=== PATIENT | female | born 1980 | race Caucasian/White ===

== ENCOUNTER 2018-07-24 10:57 | Observation (INO) | payer BC ==
--- NOTE | 2018-07-24 11:29 | Emergency Department Record ---
History of Present Illness - General Chief Complaint: Abdominal Pain Stated Complaint: ABD PAIN Time Seen by Provider: 07/24/18 11:29 Source: Patient, RN notes reviewed Mode of Arrival: Ambulatory - History of Present Illness Initial Comments: abdominal pain and vomited time two since it started at 5 pm yesterday. 3 episodes of diarrhea. PSH one ovary removed and part of the other ovary removed. Primary Dr. Dr Woods and gaming worker Dr. Weinberg PMH of endometroisis, CVA at 6 years of age and hypertension now and hypothyroidism anxiety disorder. Patient has had the same sexual partner for 12 years and denies STD and no vaginal discharge. Onset/Timin -: Days(s) Location: Diffuse Severity: Moderate Severity scale (1-10): 4 Quality: Aching, Burning, Cramping Consistency: Intermittent Improves With: Nothing Worsens With: Nothing - Related Data Patient : No Home Medications Medication Instructions Recorded Confirmed Last Taken Alprazolam 0.5 mg PO DAILY 07/24/18 07/24/18 Unknown Ascorbic Acid [Vitamin C] 1,000 mg PO DAILY 07/24/18 07/24/18 07/24/18 Aspirin [Aspirin EC] 325 mg PO DAILY 07/24/18 07/24/18 07/24/18 Atorvastatin Calcium [Lipitor] 10 mg PO DAILY 07/24/18 07/24/18 07/24/18 Carvedilol 25 mg PO DAILY 07/24/18 07/24/18 07/24/18 Cholecalciferol (Vitamin D3) 5,000 unit PO DAILY 07/24/18 07/24/18 07/24/18 [Vitamin D3] Folic Acid 0.4 mg PO DAILY 07/24/18 07/24/18 07/24/18 Hydrochlorothiazide [Hctz] 25 mg PO DAILY 07/24/18 07/24/18 07/24/18 Levothyroxine Sodium 850 mcg PO DAILY 07/24/18 07/24/18 07/24/18 Montelukast Sodium 10 mg PO DAILY 07/24/18 07/24/18 07/24/18 Multivitamin [Daily Multiple 1 each PO DAILY 07/24/18 07/24/18 07/24/18 Vitamin] Venlafaxine HCl [Effexor Xr] 150 mg PO DAILY 07/24/18 07/24/18 07/24/18 Allergies Allergy/AdvReac Type Severity Reaction Status Date / Time bismuth subsalicylate Allergy RASH Verified 07/24/18 11:08 [From Pepto-Bismol] Travel Screening - Travel/Exposure Within Last 30 Days Have you traveled within the last 30 days?: No - Travel/Exposure Within Last Year Have you traveled outside the [place] in the last year?: No - Additonal Travel Details Have you been exposed to anyone with a communicable illness?: No - Travel Symptoms Symptom Screening: None Review of Systems Reviewed: No additional complaints except as noted below Constitutional: Reports: As per HPI. Denies: Chills, Fever, Malaise, Night sweats, Weakness, Weight change Eyes: Reports: As per HPI. Denies: Eye discharge, Eye pain, Photophobia, Vision change ENT: Reports: As per HPI. Denies: Congestion, Dental pain, Ear pain, Epistaxis , Hearing loss, Throat pain Respiratory: Reports: As per HPI. Denies: Cough, Dyspnea, Hemoptysis, Stridor, Wheezes Cardiovascular: Reports: As per HPI. Denies: Arrhythmia, Chest pain, Dyspnea on exertion, Edema, Murmurs, Orthopnea, Palpitations, Paroxysmal nocturnal dyspnea, Rheumatic Fever, Syncope Endocrine: Reports: As per HPI. Denies: Fatigue, Heat or cold intolerance, Polydipsia, Polyuria Gastrointestinal: Reports: As per HPI, Abdominal pain. Denies: Constipation, Diarrhea, Hematemesis, Hematochezia, Melena, Nausea, Vomiting Genitourinary: Reports: As per HPI. Denies: Abnormal menses, Discharge, Dyspareunia, Dysuria, Frequency, Hematuria, Incontinence, Retention, Urgency Musculoskeletal: Reports: As per HPI. Denies: Arthralgia, Back pain, Gout, Joint swelling, Myalgia, Neck pain Skin: Reports: As per HPI. Denies: Bruising, Change in color, Change in hair/ nails, Lesions, Pruritus, Rash Neurological: Reports: As per HPI. Denies: Abnormal gait, Confusion, Headache, Numbness, Paresthesias, Seizure, Tingling, Tremors, Vertigo, Weakness Psychiatric: Reports: As per HPI. Denies: Anxiety, Auditory hallucinations, Depression, Homicidal thoughts, Suicidal thoughts, Visual hallucinations Hematological/Lymphatic: Reports: As per HPI. Denies: Anemia, Blood Clots, Easy bleeding, Easy bruising, Swollen glands Past Medical History - SOCIAL HISTORY Smoking Status: Never smoker Alcohol Use: None Drug Use: None - RESPIRATORY Hx Respiratory Disorders: No - CARDIOVASCULAR Hx Cardio Disorders: Yes Hx Hypertension: Yes - NEURO Hx Neuro Disorders: Yes Hx CVA: Yes - GI Hx GI Disorders: No - Hx Genitourinary Disorders: Yes - ENDOCRINE Hx Endocrine Disorders: Yes Hx Thyroid Disease: Yes - MUSCULOSKELETAL Hx Musculoskeletal Disorders: No - PSYCH Hx Psych Problems: Yes Hx Anxiety: Yes Hx Depression: Yes - HEMATOLOGY/ONCOLOGY Hx Hematology/Oncology Disorders: No Family Medical History Any Significant Family History?: Yes Hx Cancer: Grandparents *Cancer Comment: skin Hx Depression: Mother, Brother/Sister Hx HTN: Father, Mother, Grandparents Hx Stroke: Grandparents Physical Exam - General General Appearance: Alert, Oriented x3, Cooperative, No acute distress - Head Head exam: Normal inspection - Eye Eye exam: Normal appearance, PERRL Pupils: Normal accommodation - ENT ENT exam: Normal exam, Mucous membranes moist, Normal external ear exam, Normal orophraynx, TM's normal bilaterally Ear exam: Normal external inspection. negative: External canal tenderness Nasal Exam: Normal inspection. negative: Discharge, Sinus tenderness Mouth exam: Normal external inspection, Tongue normal Teeth exam: Normal inspection. negative: Dental caries Throat exam: Normal inspection. negative: Tonsillar erythema, Tonsillar exudate - Neck Neck exam: Normal inspection, Full ROM. negative: Tenderness - Respiratory Respiratory exam: Normal lung sounds bilaterally. negative: Respiratory distress - Cardiovascular Cardiovascular Exam: Regular rate, Normal rhythm, Normal heart sounds - GI/Abdominal GI/Abdominal exam: Soft, Tenderness (lower quad pain bilaterl and right upper quad and the pain comes in waves). negative: Distended, Guarding, Mass, Rebound , Rigid - Rectal Rectal exam: Deferred - exam: Deferred - Extremities Extremities exam: Normal inspection, Full ROM, Normal capillary refill. negative: Tenderness - Back Back exam: Reports: Normal inspection, Full ROM. Denies: Muscle spasm, Rash noted, Tenderness - Neurological Neurological exam: Alert, Normal gait, Oriented X3, Reflexes normal - Psychiatric Psychiatric exam: Normal affect, Normal mood - Skin Skin exam: Dry, Intact, Normal color, Warm Course Vital Signs 07/24/18 11:17 Temperature 98.3 F Pulse Rate 107 H Respiratory 20 Rate Blood Pressure 142/104 Pulse Ox 99 - Reevaluation(s) Reevaluation #1: patient requested to go to [facility] if possible and will call her family Dr. Woods. 07/24/18 13:33 Reevaluation #2: Discussed case with and she recommended calling Dr Smith. 07/24/18 13:41 Reevaluation #3: patient said her abominal pain feels better but painful on palpation in the Right lower quad 07/24/18 13:44 Reevaluation #4: Discussed case with Dr Smith and he recommended conservative management and he could see her tomorrow afternoon 07/24/18 13:52 Reevaluation #5: Discussed case with Dr Ramirez and she agreed to taking the patient. The patient was updated and she was in agreement with staying at [facility]. 07/24/18 13:57 07/24/18 14:01 Medical Decision Making - Data Complexity MDM Data: Labs Ordered and/or Reviewed, X-Ray Ordered and/or Reviewed (air fluid levels suspicious for a small bowel obstruction, transition distal illeum) - Lab Data Result diagrams: 07/24/18 11:28 07/24/18 11:28 Disposition Clinical Impression: Multiple air fluid levels of small intestine determined by X-ray, SBO (small bowel obstruction) Abdominal pain Qualifiers: Abdominal location: lower abdomen, unspecified Qualified Code(s): R10.30 - Lower abdominal pain, unspecified Decision to Admit: Admit from ER Forms: Patient Portal Access Time of Disposition: 14:02 Quality - Quality Measures Quality Measures: N/A - Blood Pressure Screening Does Patient Have Any of the Following: No, Active Dx of HTN Blood Pressure Classification: Hypertensive Reading Systolic Measurement: 142 Diastolic Measurement: 104 Screening for High Blood Pressure: Patient Exclusion, Hx of HTN [[id number]]
[2018-07-24] MEDS ORDERED: KETOROLAC 30 MG/ML VIAL IVP ONE (11:59)
[2018-07-24] MEDS ORDERED: ONDANSETRON HCL IV 4 MG/2 ML VIAL IV ONE (11:59)
[2018-07-24] MEDS ORDERED: 0.9 % SODIUM CHLORIDE 1,000 ML BAG IV ONE (11:59)
[2018-07-24 12:09] LABS: HEMATOCRIT 44.6 % (35.0-47.0); MEAN CELL VOLUME 89.9 fl (81-97); MEAN CORPUSCULAR HEMOGLOBIN 32.3 pg (27-33); MEAN CORPUSCULAR HGB CONC 35.9 g/dl (32-36); MEAN PLATELET VOLUME 10.8 fl (7.4-10.4); PLATELET COUNT 302 K/uL (130-400); RED BLOOD COUNT 4.96 M/uL (3.80-5.40); RED CELL DISTRIBUTION WIDTH 12.7 % (11.5-14.5); WHITE BLOOD COUNT W/O DIFF 11.5 K/uL (4.2-12.2)
[2018-07-24 12:10] LABS: URINE APPEARANCE CLEAR; URINE BILIRUBIN NEGATIVE (NEGATIVE); URINE BLOOD NEGATIVE (NEGATIVE); URINE COLOR YELLOW; URINE GLUCOSE (UA) NEGATIVE (NEGATIVE); URINE KETONE NEGATIVE (NEGATIVE); URINE LEUKOCYTE ESTERASE NEGATIVE (NEGATIVE); URINE NITRITE NEGATIVE (NEGATIVE); URINE PROTEIN TRACE (NEGATIVE)
[2018-07-24 12:14] LABS: HCG,QUALITATIVE URINE NEGATIVE (NEGATIVE)
[2018-07-24 12:17] LABS: BLOOD UREA NITROGEN 10 mg/dL (6-20)
[2018-07-24 12:18] LABS: CREATININE 0.6 mg/dL (0.5-0.9); EST GLOMERULAR FILTRATION RATE > 60 mL/min
[2018-07-24 12:20] LABS: GLUCOSE,RANDOM 110 mg/dL (74-109)
[2018-07-24 12:23] LABS: ALBUMIN 4.9 g/dL (4.0-5.0); ALKALINE PHOSPHATASE 76 U/L (35-104); ALT/SGPT 17 U/L (<33); AST/SGOT 24 U/L (10.0-35.0); LIPASE 22 U/L (13-60)
[2018-07-24 12:24] LABS: BILIRUBIN,DIRECT < 0.2 mg/dL (0-0.3)
[2018-07-24] MEDS ORDERED: POTASSIUM CHLORIDE 20 MEQ TABLET PO ONE (13:19)
[2018-07-24] MEDS ORDERED: KETOROLAC 30 MG/ML VIAL IVP PRN (14:09)
[2018-07-24] MEDS: HYDROMORPHONE HCL 2 MG/ML VIAL IVP PRN ×2 (15:02→21:14)
[2018-07-24] MEDS ORDERED: ACETAMINOPHEN 325 MG TAB PO PRN (16:01)
[2018-07-24] MEDS ORDERED: ALPRAZOLAM 0.25 MG TABLET PO PRN (16:15)
[2018-07-24] MEDS: VENLAFAXINE ER 75 MG CAPSULE PO SCH (16:48)
[2018-07-24] MEDS: MONTELUKAST SODIUM 10MG TABLET PO SCH (16:48)
[2018-07-24] MEDS: ACETAMINOPHEN 1,000 MG/100 ML BTL IVPB SCH ×2 (17:38→23:38)
[2018-07-24] MEDS: PANTOPRAZOLE SODIUM IV 40 MG VIAL IVP SCH (17:38)
[2018-07-24] MEDS: 0.9 % SODIUM CHLORIDE 1000ML 1,000 ML IV PRN ×2 (18:23→23:38)
[2018-07-24] MEDS: ONDANSETRON HCL IV 4 MG/2 ML VIAL IVP PRN (21:14)
--- NOTE | 2018-07-24 21:14 | Physician Progress Note ---
Subjective - Date Date of Physician Progress Note: 07/24/18 - Subjective Subjective Comment: Pt presented to the ED with abdominal pain. Pt states that the abdominal pain started at 5 PM yesterday. She initially thought it was pain 2/2 to her endometriosis but the pain progressively got worse and she started to vomit and have diarrhea overnight. She states that she was able to get a couple hours of rest but then started vomiting again this morning and came to the ED. She states that the pain feels like burning and sharp stabbing in the mid abdomen. She states that she didn't eat anything unusual and didn't consume any amrita lettuce. 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 She denies thinking she has an STD. She has been monogamous with the same partner for roughly 12 years and she believes he is monogamous as well. She uses depo for and is amenorrheic. She denies . Vitals:T 98.3, P 107, RR 20, BP 142/104, 99% on RA Labs: AG increase mildly at 17, Low K+ otherwise nml Imaging: Suspicious for SBO. Pt was admitted for SBO and surgical c/s for possible intervention. Dr Smith to eval pt in AM. With antiemetics, toradol, and dilaudid given in the ED. Pt states that she is feeling better after the initial treatment. Last BM this AM. Objective - Vital Signs Vital Signs: Vital Signs - Last 24 Hrs Temp Pulse Pulse Resp BP BP Pulse Ox 07/24/18 18:00 99.2 F 94 H 16 140/79 98 07/24/18 14:40 98.1 F 125 H 16 151/100 96 07/24/18 14:02 89 18 141/95 98 07/24/18 11:17 98.3 F 107 H 20 142/104 99 - General General Appearance: Alert, Oriented x3, Cooperative, No acute distress - Head Head exam: Normal inspection - Eye Eye exam: Normal appearance, PERRL Pupils: Normal accommodation - ENT ENT exam: Normal exam, Mucous membranes moist, Normal external ear exam, Normal orophraynx Ear exam: Normal external inspection. negative: External canal tenderness Nasal Exam: Normal inspection. negative: Discharge, Sinus tenderness Mouth exam: Normal external inspection, Tongue normal Teeth exam: Normal inspection. negative: Dental caries Throat exam: Normal inspection. negative: Tonsillar erythema, Tonsillar exudate - Neck Neck exam: Normal inspection, Full ROM. negative: Tenderness - Respiratory Respiratory exam: Normal lung sounds bilaterally. negative: Respiratory distress - Cardiovascular Cardiovascular Exam: Regular rate, Normal rhythm, Normal heart sounds - GI/Abdominal GI/Abdominal exam: Soft, Tenderness (lower quad pain bilaterl and right upper quad and the pain comes in waves). negative: Distended, Guarding, Mass, Rebound , Rigid - Rectal Rectal exam: Deferred - exam: Deferred - Extremities Extremities exam: Normal inspection, Full ROM, Normal capillary refill. negative: Tenderness - Back Back exam: Reports: Normal inspection, Full ROM. Denies: Muscle spasm, Rash noted, Tenderness - Neurological Neurological exam: Alert, Normal gait, Oriented X3, Reflexes normal - Psychiatric Psychiatric exam: Normal affect, Normal mood - Skin Skin exam: Dry, Intact, Normal color, Warm Assessment and Plan - Assessment and Plan (1) SBO (small bowel obstruction) Current Visit: Yes Status: Acute Base Code: K56.609 - UNSP INTESTNL OBST, UNSP TO PARTIAL VERSUS COMPLETE OBST Priority: High (2) Full code status Current Visit: Yes Status: Acute Base Code: Z78.9 - OTHER SPECIFIED HEALTH STATUS Priority: High - Disposition Disposition: pending surgery c/s, pain control, and able to tolerate soft diet. Results - Labs Result Diagrams: 07/24/18 11:28 07/24/18 11:28 Labs Last 24 Hours: Laboratory Results - last 24 hr 07/24/18 07/24/18 07/24/18 11:28 11:28 11:28 WBC 11.5 RBC 4.96 Hgb 16.0 Hct 44.6 MCV 89.9 MCH 32.3 MCHC 35.9 RDW 12.7 Plt Count 302 MPV 10.8 H Neutrophils % 85.0 H Eosinophils % Not Reportable Basophils % Not Reportable Lymphocytes 11.0 L Monocytes 4.0 Sodium 139 Potassium 3.1 L Chloride 99 Carbon Dioxide 23.0 Anion Gap 17.0 H BUN 10 Creatinine 0.6 Estimated GFR > 60 Random Glucose 110 H Calcium 10.0 Total Bilirubin 0.50 Direct Bilirubin < 0.2 AST 24 ALT 17 Alkaline Phosphatase 76 Total Protein 8.0 Albumin 4.9 Lipase 22 Urine Color Yellow Urine Appearance Clear Urine pH 6.5 Ur Specific [place] 1.020 Urine Protein Trace H Urine Glucose (UA) Negative Urine Ketones Negative Urine Blood Negative Urine Nitrite Negative Urine Bilirubin Negative Urine Urobilinogen 1.0 Ur Leukocyte Esterase Negative Urine HCG, Qual Negative DVT/PE Assessment - Risk for VTE Risk for VTE: No Risk Level: Very Low Risk Assessment Date: 07/24/18 Risk Assessment Time: 21:24 VTE Orders Placed or Will Be Placed: No VTE Reason for No Prophylaxis: Not Indicated - VTE Confirmation VTE Confirmed w/Diagnostic Imaging Test: No - Active Medicaitons Current Medications: Current Medications Alprazolam (Xanax) 0.5 mg PO DAILY PRN PRN Reason: ANXIETY Carvedilol (Coreg) 25 mg PO BID [facility] Enoxaparin Sodium (Lovenox) 40 mg SC DAILY [facility] Hydromorphone HCl (Dilaudid) 1 mg IVP Q4H PRN PRN Reason: ABDOMINAL PAIN Last Admin: 07/24/18 15:02 Dose: 1 mg Sodium Chloride () 1,000 mls @ 125 mls/hr IV .Q8H PRN PRN Reason: LARGE VOLUME IV Last Admin: 07/24/18 18:23 Dose: 125 mls/hr Acetaminophen (Ofirmev) 1,000 mg in 100 mls @ 400 mls/hr IVPB Q6HR [facility] Last Infusion: 07/24/18 18:23 Dose: Infused Ketorolac Tromethamine (Toradol) 15 mg IVP Q8H PRN PRN Reason: ABDOMINAL PAIN Levothyroxine Sodium (Synthroid) 50 mcg PO DAILYTHY [facility] Montelukast Sodium (Singulair) 10 mg PO DAILY [facility] Last Admin: 07/24/18 16:48 Dose: 10 mg Ondansetron HCl (Zofran) 4 mg IVP Q4H PRN PRN Reason: NAUSEA Pantoprazole Sodium (Protonix Iv) 40 mg IVP Q24H [facility] Last Admin: 07/24/18 17:38 Dose: 40 mg Venlafaxine HCl (Effexor Xr) 150 mg PO DAILY [facility] Last Admin: 07/24/18 16:48 Dose: 150 mg AMI Plan - Labs Result Diagrams: 07/24/18 11:28 07/24/18 11:28
[2018-07-24] MEDS: CARVEDILOL 12.5 MG TABLET PO SCH (21:16)
--- NOTE | 2018-07-24 21:29 | History & Physical ---
History of Present Illness - Date of Service Date of Service for History & Physical: 07/24/18 - History of Present Illness Admitting Diagnosis: SBO possible illeus. abdominal pain History of Present Illness: Pt presented to the ED with abdominal pain. Pt states that the abdominal pain started at 5 PM yesterday. She initially thought it was pain 2/2 to her endometriosis but the pain progressively got worse and she started to vomit and have diarrhea overnight. She states that she was able to get a couple hours of rest but then started vomiting again this morning and came to the ED. She states that the pain feels like burning and sharp stabbing in the mid abdomen. She states that she didn't eat anything unusual and didn't consume any amrita lettuce. 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 She denies thinking she has an STD. She has been monogamous with the same partner for roughly 12 years and she believes he is monogamous as well. She uses depo for and is amenorrheic. She denies . Vitals:T 98.3, P 107, RR 20, BP 142/104, 99% on RA Labs: AG increase mildly at 17, Low K+ otherwise nml Imaging: Suspicious for SBO. Pt was admitted for SBO and surgical c/s for possible intervention. Dr Smith to eval pt in AM. With antiemetics, toradol, and dilaudid given in the ED. Pt states that she is feeling better after the initial treatment. Last BM this AM. Travel Screening - Travel/Exposure Within Last 30 Days Have you traveled within the last 30 days?: No - Travel/Exposure Within Last Year Have you traveled outside the [place] in the last year?: No - Additonal Travel Details Have you been exposed to anyone with a communicable illness?: No - Travel Symptoms Symptom Screening: None Review of Systems Constitutional: Reports: As per HPI. Denies: Chills, Fever, Malaise, Night sweats, Weakness, Weight change Eyes: Reports: As per HPI. Denies: Eye discharge, Eye pain, Photophobia, Vision change ENT: Reports: As per HPI. Denies: Congestion, Dental pain, Ear pain, Epistaxis , Hearing loss, Throat pain Respiratory: Reports: As per HPI. Denies: Cough, Dyspnea, Hemoptysis, Stridor, Wheezes Cardiovascular: Reports: As per HPI. Denies: Arrhythmia, Chest pain, Dyspnea on exertion, Edema, Murmurs, Orthopnea, Palpitations, Paroxysmal nocturnal dyspnea, Rheumatic Fever, Syncope Endocrine: Reports: As per HPI. Denies: Fatigue, Heat or cold intolerance, Polydipsia, Polyuria Gastrointestinal: Reports: As per HPI, Abdominal pain, Diarrhea, Nausea, Vomiting. Denies: Constipation, Hematemesis, Hematochezia, Melena Genitourinary: Reports: As per HPI. Denies: Abnormal menses, Discharge, Dyspareunia, Dysuria, Frequency, Hematuria, Incontinence, Retention, Urgency Musculoskeletal: Reports: As per HPI. Denies: Arthralgia, Back pain, Gout, Joint swelling, Myalgia, Neck pain Skin: Reports: As per HPI. Denies: Bruising, Change in color, Change in hair/ nails, Lesions, Pruritus, Rash Neurological: Reports: As per HPI. Denies: Abnormal gait, Confusion, Headache, Numbness, Paresthesias, Seizure, Tingling, Tremors, Vertigo, Weakness Psychiatric: Reports: As per HPI Hematological/Lymphatic: Reports: As per HPI Past Medical History - SOCIAL HISTORY Smoking Status: Never smoker Alcohol Use: None Drug Use: None - RESPIRATORY Hx Respiratory Disorders: No - CARDIOVASCULAR Hx Cardio Disorders: Yes Hx Hypertension: Yes - NEURO Hx Neuro Disorders: Yes Hx CVA: Yes (5yo, loss of fine motor left arm) - GI Hx GI Disorders: No - Hx Genitourinary Disorders: Yes - ENDOCRINE Hx Endocrine Disorders: Yes Hx Thyroid Disease: Yes - MUSCULOSKELETAL Hx Musculoskeletal Disorders: No - PSYCH Hx Psych Problems: Yes Hx Anxiety: Yes Hx Depression: Yes - HEMATOLOGY/ONCOLOGY Hx Hematology/Oncology Disorders: No Family Medical History Any Significant Family History?: Yes Hx Cancer: Grandparents *Cancer Comment: skin Hx Depression: Mother, Brother/Sister Hx HTN: Father, Mother, Grandparents Hx Stroke: Grandparents H&P Meds/Allergies - Allergies Allergies: Allergies Allergy/AdvReac Type Severity Reaction Status Date / Time bismuth subsalicylate Allergy RASH Verified 07/24/18 11:08 [From Pepto-Bismol] - Home Medications Home Medications Medication Instructions Recorded Confirmed Last Taken Alprazolam 0.5 mg PO DAILY 07/24/18 07/24/18 Unknown Ascorbic Acid [Vitamin C] 1,000 mg PO DAILY 07/24/18 07/24/18 07/24/18 Aspirin [Aspirin EC] 325 mg PO DAILY 07/24/18 07/24/18 07/24/18 Atorvastatin Calcium [Lipitor] 10 mg PO DAILY 07/24/18 07/24/18 07/24/18 Carvedilol 25 mg PO BID 07/24/18 07/24/18 07/24/18 Cholecalciferol (Vitamin D3) 5,000 unit PO DAILY 07/24/18 07/24/18 07/24/18 [Vitamin D3] Folic Acid 0.4 mg PO DAILY 07/24/18 07/24/18 07/24/18 Hydrochlorothiazide [Hctz] 25 mg PO DAILY 07/24/18 07/24/18 07/24/18 Levothyroxine Sodium 50 mcg PO DAILY 07/24/18 07/24/18 07/24/18 Montelukast Sodium 10 mg PO DAILY 07/24/18 07/24/18 07/24/18 Multivitamin [Daily Multiple 1 each PO DAILY 07/24/18 07/24/18 07/24/18 Vitamin] Venlafaxine HCl [Effexor Xr] 150 mg PO DAILY 07/24/18 07/24/18 07/24/18 - Active Medications Active Medications: Current Medications Alprazolam (Xanax) 0.5 mg PO DAILY PRN PRN Reason: ANXIETY Carvedilol (Coreg) 25 mg PO BID [facility] Last Admin: 07/24/18 21:16 Dose: 25 mg Hydromorphone HCl (Dilaudid) 1 mg IVP Q4H PRN PRN Reason: ABDOMINAL PAIN Last Admin: 07/24/18 21:14 Dose: 1 mg Sodium Chloride () 1,000 mls @ 125 mls/hr IV .Q8H PRN PRN Reason: LARGE VOLUME IV Last Admin: 07/24/18 18:23 Dose: 125 mls/hr Acetaminophen (Ofirmev) 1,000 mg in 100 mls @ 400 mls/hr IVPB Q6HR [facility] Last Infusion: 07/24/18 18:23 Dose: Infused Ketorolac Tromethamine (Toradol) 15 mg IVP Q8H PRN PRN Reason: ABDOMINAL PAIN [facility]othyroxine [facility] ([facility] Montelukast Sodium (Singulair) 10 mg PO DAILY [facility] Last Admin: 07/24/18 16:48 Dose: 10 mg Ondansetron HCl (Zofran) 4 mg IVP Q4H PRN PRN Reason: NAUSEA Last Admin: 07/24/18 21:14 Dose: 4 mg Pantoprazole Sodium (Protonix Iv) 40 mg IVP Q24H [facility] Last Admin: 07/24/18 17:38 Dose: 40 mg Venlafaxine HCl (Effexor Xr) 150 mg PO DAILY [facility] Last Admin: 07/24/18 16:48 Dose: 150 mg Physical Exam - Vital Signs Vital Signs: Vital Signs - Last 24 Hrs Temp Pulse Pulse Resp BP BP Pulse Ox 07/24/18 21:17 98.7 F 93 H 18 140/72 98 07/24/18 18:00 99.2 F 94 H 16 140/79 98 07/24/18 14:40 98.1 F 125 H 16 151/100 96 07/24/18 14:02 89 18 141/95 98 07/24/18 11:17 98.3 F 107 H 20 142/104 99 - General General Appearance: Alert, Oriented x3, Cooperative, No acute distress - Head Head exam: Normal inspection - Eye Eye exam: Normal appearance, PERRL Pupils: Normal accommodation - ENT ENT exam: Normal exam, Mucous membranes moist, Normal external ear exam, Normal orophraynx Ear exam: Normal external inspection. negative: External canal tenderness Nasal Exam: Normal inspection. negative: Discharge, Sinus tenderness Mouth exam: Normal external inspection, Tongue normal Teeth exam: Normal inspection. negative: Dental caries Throat exam: Normal inspection. negative: Tonsillar erythema, Tonsillar exudate - Neck Neck exam: Normal inspection, Full ROM. negative: Tenderness - Respiratory Respiratory exam: Normal lung sounds bilaterally. negative: Respiratory distress - Cardiovascular Cardiovascular Exam: Regular rate, Normal rhythm, Normal heart sounds - GI/Abdominal GI/Abdominal exam: Soft, Hyperactive bowel sounds, Tenderness (lower quad pain bilaterl and right upper quad and the pain comes in waves). negative: Distended , Guarding, Mass, Rebound, Rigid - Rectal Rectal exam: Deferred - exam: Deferred - Extremities Extremities exam: Normal inspection, Full ROM, Normal capillary refill. negative: Tenderness - Back Back exam: Reports: Normal inspection, Full ROM. Denies: Muscle spasm, Rash noted, Tenderness - Neurological Neurological exam: Alert, Oriented X3 - Psychiatric Psychiatric exam: Normal affect, Normal mood - Skin Skin exam: Dry, Intact, Normal color, Warm Results - Labs Result Diagrams: 07/24/18 11:28 07/24/18 11:28 Labs Last 24 Hours: Laboratory Results - last 24 hr 07/24/18 07/24/18 07/24/18 11:28 11:28 11:28 WBC 11.5 RBC 4.96 Hgb 16.0 Hct 44.6 MCV 89.9 MCH 32.3 MCHC 35.9 RDW 12.7 Plt Count 302 MPV 10.8 H Neutrophils % 85.0 H Eosinophils % Not Reportable Basophils % Not Reportable Lymphocytes 11.0 L Monocytes 4.0 Sodium 139 Potassium 3.1 L Chloride 99 Carbon Dioxide 23.0 Anion Gap 17.0 H BUN 10 Creatinine 0.6 Estimated GFR > 60 Random Glucose 110 H Calcium 10.0 Total Bilirubin 0.50 Direct Bilirubin < 0.2 AST 24 ALT 17 Alkaline Phosphatase 76 Total Protein 8.0 Albumin 4.9 Lipase 22 Urine Color Yellow Urine Appearance Clear Urine pH 6.5 Ur Specific [place] 1.020 Urine Protein Trace H Urine Glucose (UA) Negative Urine Ketones Negative Urine Blood Negative Urine Nitrite Negative Urine Bilirubin Negative Urine Urobilinogen 1.0 Ur Leukocyte Esterase Negative Urine HCG, Qual Negative VTE H&P Assessment - Risk for VTE Risk for VTE: Yes Risk Level: Very Low (scd) Risk Assessment Date: 07/24/18 Risk Assessment Time: 21:24 VTE Orders Placed or Will Be Placed: Yes Plan - Detailed Diagnosis and Plan (1) SBO (small bowel obstruction) Current Visit: Yes Status: Acute Base Code: K56.609 - UNSP INTESTNL OBST, UNSP TO PARTIAL VERSUS COMPLETE OBST Priority: High Comment: - NPO - [place] to eval in AM - Dilaudid, ofiramev, toradol on board for pain. - Explained to pt to try not to use dilaudid as it will cause constipation and worsen symptoms/ obstruction. - IVF bolus x 3 then maintenance fluid 125/hr NS. - Protonix for burning pain 40mg daily. - will monitor closely. (2) Full code status Current Visit: Yes Status: Acute Base Code: Z78.9 - OTHER SPECIFIED HEALTH STATUS Priority: High - Disposition pending surgery c/s, pain control, and able to tolerate soft diet.
[2018-07-25] MEDS: LEVOTHYROXINE SODIUM 50 MCG TABLET PO SCH (06:06)
[2018-07-25] MEDS: HYDROMORPHONE HCL 2 MG/ML VIAL IVP PRN ×5 (06:10→23:17)
[2018-07-25] MEDS: ACETAMINOPHEN 1,000 MG/100 ML BTL IVPB SCH ×4 (06:16→23:00)
[2018-07-25 06:51] LABS: BASO % 0.2 % (0-6); EOS % 2.8 % (0-6); GRAN % 49.9 % (47-80); HEMATOCRIT 37.6 % (35.0-47.0); HEMOGLOBIN 12.8 gm/dl (11.6-16.0); LYMPH % 37.6 % (16-45); MEAN CELL VOLUME 93.3 fl (81-97); MEAN CORPUSCULAR HEMOGLOBIN 31.8 pg (27-33); MEAN PLATELET VOLUME 10.1 fl (7.4-10.4); MONO % 9.5 % (0-9); PLATELET COUNT 218 K/uL (130-400); RED BLOOD COUNT 4.03 M/uL (3.80-5.40); WHITE BLOOD COUNT W/O DIFF 6.5 K/uL (4.2-12.2)
[2018-07-25 07:11] LABS: BLOOD UREA NITROGEN 9 mg/dL (6-20); CREATININE 0.6 mg/dL (0.5-0.9); EST GLOMERULAR FILTRATION RATE > 60 mL/min; GLUCOSE,RANDOM 93 mg/dL (74-109)
--- NOTE | 2018-07-25 07:28 | CT SCAN REPORT ---
EXAM: NONCONTRAST CT OF THE ABDOMEN AND PELVIS HISTORY: ABDOMINAL PAIN. HISTORY OF ENDOMETRIOSIS. TECHNIQUE: Noncontrast CT of the abdomen and pelvis was obtained. Comparison: None. FINDINGS: No significant abnormalities are detected in the visualized lung bases. Unremarkable noncontrast appearance of the liver, gallbladder, adrenal glands, pancreas, and spleen. No hydronephrosis. Mildly dilated small bowel loops with air fluid levels in the mid and lower abdomen, measuring up to 3 cm in transverse diameter. Suggestion of a small bowel transition point in the right lower abdominal quadrant at the level of the ileum (series 601.2 image 56). There is a small volume of stool in the rectum. The colon is otherwise collapsed. A non-thickened appendix is seen in the right lower quadrant. There is a small volume of free fluid in the pelvis. No free air detected. The stomach is nondilated. No definite urine abnormality appreciated on this noncontrast study. The urinary bladder is mildly distended, no definite abnormality is appreciated. No acute osseous findings. IMPRESSION: 1. FINDINGS SUGGESTIVE OF SMALL BOWEL OBSTRUCTION WITH MILDLY DILATED SMALL BOWEL LOOPS WITH AIR FLUID LEVELS IN THE ABDOMEN AND PELVIS AND COLLAPSE OF THE COLON. POSSIBLE SMALL BOWEL TRANSITION POINT AT THE LEVEL OF THE ILEUM IN THE RIGHT LOWER ABDOMINAL QUADRANT. 2. SMALL VOLUME OF NONSPECIFIC FREE FLUID IN THE PELVIS. JOB NUMBER: [id number] [facility]
[2018-07-25] MEDS: CARVEDILOL 12.5 MG TABLET PO SCH ×2 (09:11→21:07)
[2018-07-25] MEDS: MONTELUKAST SODIUM 10MG TABLET PO SCH (09:12)
[2018-07-25] MEDS: VENLAFAXINE ER 75 MG CAPSULE PO SCH (09:12)
[2018-07-25] MEDS ORDERED: ENOXAPARIN 40 MG/0.4 ML SYR SC SCH (10:00)
[2018-07-25] MEDS: 0.9 % SODIUM CHLORIDE 1000ML 1,000 ML IV PRN (10:30)
--- NOTE | 2018-07-25 10:53 | Physician Progress Note ---
Subjective - Date Date of Physician Progress Note: 07/25/18 - Subjective Subjective Comment: Pt states that her pain has reduced from 7-8/10 to 3-4/10 since yesterday. She denies any N/V. She said her last BM was the day before yesterday or yesterday morning, cannot remember. Passing gas well. Very hungry this AM. Hearing several bowel sounds. Objective - Vital Signs Vital Signs: Vital Signs - Last 24 Hrs Temp Pulse Pulse Resp BP BP Pulse Ox 07/25/18 08:05 16 07/25/18 07:22 98.6 F 72 15 138/92 98 07/25/18 05:38 91 H 18 114/76 98 07/24/18 21:17 98.7 F 93 H 18 140/72 98 07/24/18 21:00 93 H 18 07/24/18 18:00 99.2 F 94 H 16 140/79 98 07/24/18 14:40 98.1 F 125 H 16 151/100 96 07/24/18 14:02 89 18 141/95 98 07/24/18 11:17 98.3 F 107 H 20 142/104 99 - General General Appearance: Alert, Oriented x3, Cooperative, No acute distress - Head Head exam: Normal inspection - Eye Eye exam: Normal appearance, PERRL Pupils: Normal accommodation - ENT ENT exam: Normal exam, Mucous membranes moist, Normal external ear exam, Normal orophraynx Ear exam: Normal external inspection. negative: External canal tenderness Nasal Exam: Normal inspection. negative: Discharge, Sinus tenderness Mouth exam: Normal external inspection, Tongue normal Teeth exam: Normal inspection. negative: Dental caries Throat exam: Normal inspection. negative: Tonsillar erythema, Tonsillar exudate - Neck Neck exam: Normal inspection, Full ROM. negative: Tenderness - Respiratory Respiratory exam: Normal lung sounds bilaterally. negative: Respiratory distress - Cardiovascular Cardiovascular Exam: Regular rate, Normal rhythm, Normal heart sounds - GI/Abdominal GI/Abdominal exam: Soft, Hyperactive bowel sounds. negative: Distended, Guarding, Mass, Rebound, Rigid, Tenderness - Rectal Rectal exam: Deferred - exam: Deferred - Extremities Extremities exam: Normal inspection, Full ROM, Normal capillary refill. negative: Tenderness - Back Back exam: Reports: Normal inspection, Full ROM. Denies: Muscle spasm, Rash noted, Tenderness - Neurological Neurological exam: Alert, Oriented X3 - Psychiatric Psychiatric exam: Normal affect, Normal mood - Skin Skin exam: Dry, Intact, Normal color, Warm Assessment and Plan - Assessment and Plan (1) SBO (small bowel obstruction) Current Visit: Yes Status: Acute Base Code: K56.609 - UNSP INTESTNL OBST, UNSP TO PARTIAL VERSUS COMPLETE OBST Priority: High Comment: - NPO - [place] to eval in PM, will wait for recs. - Dilaudid, ofiramev, toradol on board for pain. - Explained to pt to try not to use dilaudid as it will cause constipation and worsen symptoms/ obstruction. - maintenance fluid 125/hr NS - Protonix for burning pain 40mg daily. - will monitor closely. (2) Full code status Current Visit: Yes Status: Acute Base Code: Z78.9 - OTHER SPECIFIED HEALTH STATUS Priority: High - Disposition Disposition: Pending surgery recs. Results - Labs Result Diagrams: 07/25/18 06:36 07/25/18 06:36 Labs Last 24 Hours: Laboratory Results - last 24 hr 07/24/18 07/24/18 07/24/18 11:28 11:28 11:28 WBC 11.5 RBC 4.96 Hgb 16.0 Hct 44.6 MCV 89.9 MCH 32.3 MCHC 35.9 RDW 12.7 Plt Count 302 MPV 10.8 H Gran % Neutrophils % 85.0 H Lymphocytes % Monocytes % Eosinophils % Not Reportable Basophils % Not Reportable Lymphocytes 11.0 L Monocytes 4.0 Sodium 139 Potassium 3.1 L Chloride 99 Carbon Dioxide 23.0 Anion Gap 17.0 H BUN 10 Creatinine 0.6 Estimated GFR > 60 Random Glucose 110 H Calcium 10.0 Total Bilirubin 0.50 Direct Bilirubin < 0.2 AST 24 ALT 17 Alkaline Phosphatase 76 Total Protein 8.0 Albumin 4.9 Lipase 22 Urine Color Yellow Urine Appearance Clear Urine pH 6.5 Ur Specific [place] 1.020 Urine Protein Trace H Urine Glucose (UA) Negative Urine Ketones Negative Urine Blood Negative Urine Nitrite Negative Urine Bilirubin Negative Urine Urobilinogen 1.0 Ur Leukocyte Esterase Negative Urine HCG, Qual Negative 07/25/18 07/25/18 06:36 06:36 WBC 6.5 RBC 4.03 Hgb 12.8 Hct 37.6 MCV 93.3 MCH 31.8 MCHC 34.0 RDW 13.0 Plt Count 218 MPV 10.1 Gran % 49.9 Neutrophils % Lymphocytes % 37.6 Monocytes % 9.5 H Eosinophils % 2.8 Basophils % 0.2 Lymphocytes Monocytes Sodium 140 Potassium 3.5 Chloride 108 H Carbon Dioxide 19.0 L Anion Gap 13.0 BUN 9 Creatinine 0.6 Estimated GFR > 60 Random Glucose 93 Calcium 8.1 L Total Bilirubin Direct Bilirubin AST ALT Alkaline Phosphatase Total Protein Albumin Lipase Urine Color Urine Appearance Urine pH Ur Specific [place] Urine Protein Urine Glucose (UA) Urine Ketones Urine Blood Urine Nitrite Urine Bilirubin Urine Urobilinogen Ur Leukocyte Esterase Urine HCG, Qual DVT/PE Assessment - Risk for VTE Risk for VTE: No Risk Level: Very Low (scd) Risk Assessment Date: 07/24/18 Risk Assessment Time: 21:24 VTE Orders Placed or Will Be Placed: Yes - Active Medicaitons Current Medications: Current Medications Alprazolam (Xanax) 0.5 mg PO DAILY PRN PRN Reason: ANXIETY Carvedilol (Coreg) 25 mg PO BID [facility] Last Admin: 07/25/18 09:11 Dose: 25 mg Hydromorphone HCl (Dilaudid) 1 mg IVP Q4H PRN PRN Reason: ABDOMINAL PAIN Last Admin: 07/25/18 06:10 Dose: 1 mg Sodium Chloride () 1,000 mls @ 125 mls/hr IV .Q8H PRN PRN Reason: LARGE VOLUME IV Last Infusion: 07/25/18 08:41 Dose: Infused Acetaminophen (Ofirmev) 1,000 mg in 100 mls @ 400 mls/hr IVPB Q6HR [facility] Last Infusion: 07/25/18 06:38 Dose: Infused Ketorolac Tromethamine (Toradol) 15 mg IVP Q8H PRN PRN Reason: ABDOMINAL PAIN Levothyroxine Sodium (Synthroid) 50 mcg PO DAILYTHY [facility] Last Admin: 07/25/18 06:06 Dose: 50 mcg Montelukast Sodium (Singulair) 10 mg PO DAILY [facility] Last Admin: 07/25/18 09:12 Dose: 10 mg Ondansetron HCl (Zofran) 4 mg IVP Q4H PRN PRN Reason: NAUSEA Last Admin: 07/24/18 21:14 Dose: 4 mg Pantoprazole Sodium (Protonix Iv) 40 mg IVP Q24H [facility] Last Admin: 12/05/18 17:38 Dose: 40 mg Venlafaxine HCl (Effexor Xr) 150 mg PO DAILY [facility] Last Admin: 07/25/18 09:12 Dose: 150 mg AMI Plan - Labs Result Diagrams: 07/25/18 06:36 07/25/18 06:36
[2018-07-25] MEDS: PANTOPRAZOLE SODIUM IV 40 MG VIAL IVP SCH (17:21)
[2018-07-25] MEDS: ENOXAPARIN 40 MG/0.4 ML SYR SQ SCH (19:42)
[2018-07-25] MEDS: MAGNESIUM HYDROXIDE 30 ML UDC PO SCH (21:07)
[2018-07-25] MEDS: ONDANSETRON HCL IV 4 MG/2 ML VIAL IVP PRN (22:54)
[2018-07-26] MEDS: ACETAMINOPHEN 1,000 MG/100 ML BTL IVPB SCH (06:09)
[2018-07-26] MEDS: LEVOTHYROXINE SODIUM 50 MCG TABLET PO SCH (06:09)
[2018-07-26] MEDS: HYDROMORPHONE HCL 2 MG/ML VIAL IVP PRN (06:15)
[2018-07-26 07:01] LABS: BASO % 0.3 % (0-6); EOS % 2.6 % (0-6); GRAN % 60.2 % (47-80); HEMATOCRIT 39.3 % (35.0-47.0); HEMOGLOBIN 13.4 gm/dl (11.6-16.0); MEAN CELL VOLUME 92.9 fl (81-97); MEAN CORPUSCULAR HEMOGLOBIN 31.7 pg (27-33); MEAN CORPUSCULAR HGB CONC 34.1 g/dl (32-36); MEAN PLATELET VOLUME 9.8 fl (7.4-10.4); MONO % 7.9 % (0-9); PLATELET COUNT 234 K/uL (130-400); RED BLOOD COUNT 4.23 M/uL (3.80-5.40); RED CELL DISTRIBUTION WIDTH 12.8 % (11.5-14.5); WHITE BLOOD COUNT W/O DIFF 6.1 K/uL (4.2-12.2)
[2018-07-26 07:17] LABS: ALB/GLOB RATIO 1.8 (1.1-1.8); ALKALINE PHOSPHATASE 56 U/L (35-104); ALT/SGPT 12 U/L (<33); AST/SGOT 13 U/L (10.0-35.0); BLOOD UREA NITROGEN 6 mg/dL (6-20); CREATININE 0.5 mg/dL (0.5-0.9); EST GLOMERULAR FILTRATION RATE > 60 mL/min; GLUCOSE,RANDOM 85 mg/dL (74-109); TOTAL PROTEIN 6.2 g/dL (6.6-8.7)
--- NOTE | 2018-07-26 10:00 | Medical Records Consult ---
DATE OF CONSULTATION: 07/25/2018 Surgeon: Dariusz Smith DO Referring physician: Dr. Marcos REASON FOR CONSULTATION: Small bowel obstruction. INDICATIONS: The patient is a 37-year-old female, who about 48 hours started developing some diffuse abdominal pain. This was accompanied by some nausea and some vomiting. She also had 3 to 4 episodes of diarrhea. Then, the pain became worse, therefore she was seen at [facility] ER. Full workup was done at that time. She states she has never had this issue before. She does have a surgical history of laparotomy with partial oophorectomy and what she describes as a cleanup of her endometriosis. This was about 15 years ago in [place]. She states overall now she does feel a bit better. She is passing gas and is on a liquid diet. When she was admitted, her white count was 11,000. She had a potassium of 3.1. Most of her laboratory values appeared normal. CT scan did show findings consistent with dilated small bowel, transition point in her right lower quadrant. She has had no followup imaging at this point. PAST MEDICAL HISTORY: Endometriosis. Depression, anxiety. Hypercholesterolemia. Hypertension. PAST SURGICAL HISTORY: Exploratory laparotomy with left oophorectomy and partial right oophorectomy. CURRENT MEDICATIONS: 1. Xanax. 2. Aspirin. 3. Lipitor. 4. Carvedilol. 5. Vitamin D. 6. Effexor. ALLERGIES: PEPTO-BISMOL. SOCIAL HISTORY: She denies any tobacco or alcohol usage. PHYSICAL EXAM: VITAL SIGNS: Temperature is 99. Pulse rate is 85. Blood pressure is 133/94. HEART: Regular. LUNGS: Clear. ABDOMEN: Soft. Mildly obese. Bowel sounds are noted. She has a well healed infraumbilical laparotomy scar. EXTREMITIES: Show no trace of edema. SCDs are on. IMPRESSION: Partial small bowel obstruction. PLAN: I would continue clear liquid diet throughout the night. I would recommend DVT prophylaxis in the form of Lovenox, as opposed to SCDs. Followup flat plate upright in the morning would be recommended, as well bowel stimulus with Milk of Magnesia. This is discussed with the patient in detail, as well as the nursing staff. Thank you for this referral. SHEILA
[2018-07-26] MEDS: ENOXAPARIN 40 MG/0.4 ML SYR SQ SCH (10:24)
[2018-07-26] MEDS: MAGNESIUM HYDROXIDE 30 ML UDC PO SCH (10:27)
[2018-07-26] MEDS: MONTELUKAST SODIUM 10MG TABLET PO SCH (10:27)
[2018-07-26] MEDS: CARVEDILOL 12.5 MG TABLET PO SCH (10:30)
[2018-07-26] MEDS: VENLAFAXINE ER 75 MG CAPSULE PO SCH (10:30)
[2018-07-26] MEDS ORDERED: SUMATRIPTAN 6 MG/0.5 ML VIAL SQ ONE (10:44)
[2018-07-26] MEDS ORDERED: MORPHINE SULFATE 10 MG/ML VIAL IVP PRN (11:42)
[2018-07-26] MEDS ORDERED: POTASSIUM CHL 20MEQ IN 1L NS 20 MEQ/1,000 ML BAG IV SCH (11:45)
--- NOTE | 2018-07-26 11:53 | Physician Progress Note ---
Subjective - Date Date of Physician Progress Note: 07/26/18 - Subjective Subjective Comment: Pt is tolerating CLD without issues. She does have some nausea and a migraine she thinks from not being able to eat. She had ofiramev and toradol this morning without relief. She would like something for her migraine. Denies any BM 's yet. Denies feeling bloated or constipated. Still passing gas and hearing lots of bowel sounds. Objective - Vital Signs Vital Signs: Vital Signs - Last 24 Hrs Temp Pulse Resp BP Pulse Ox 07/26/18 11:27 97.8 F 76 16 169/91 100 07/26/18 10:33 98.1 F 73 17 156/99 98 07/26/18 07:51 97.5 F L 81 16 139/90 98 07/26/18 06:00 97.1 F L 79 16 150/77 97 07/26/18 02:00 97.9 F 77 16 148/84 97 07/25/18 22:00 98.4 F 81 17 141/78 99 07/25/18 21:00 16 07/25/18 18:00 98.7 F 84 16 130/102 97 07/25/18 14:00 99.5 F 85 16 133/94 99 - General General Appearance: Alert, Oriented x3, Cooperative, No acute distress - Head Head exam: Normal inspection - Eye Eye exam: Normal appearance Pupils: Normal accommodation - ENT ENT exam: Normal exam, Mucous membranes moist, Normal external ear exam, Normal orophraynx Ear exam: Normal external inspection Nasal Exam: Normal inspection. negative: Discharge Mouth exam: Normal external inspection - Neck Neck exam: Normal inspection, Full ROM - Respiratory Respiratory exam: Normal lung sounds bilaterally. negative: Respiratory distress - Cardiovascular Cardiovascular Exam: Regular rate, Normal rhythm, Normal heart sounds - GI/Abdominal GI/Abdominal exam: Soft, Normal bowel sounds. negative: Distended, Guarding, Mass, Rebound, Rigid, Tenderness - Rectal Rectal exam: Deferred - exam: Deferred - Extremities Extremities exam: Normal inspection, Full ROM, Normal capillary refill. negative: Tenderness - Back Back exam: Reports: Normal inspection, Full ROM. Denies: Muscle spasm, Rash noted, Tenderness - Neurological Neurological exam: Alert, Oriented X3 - Psychiatric Psychiatric exam: Normal affect, Normal mood - Skin Skin exam: Dry, Intact, Normal color, Warm Assessment and Plan - Assessment and Plan (1) SBO (small bowel obstruction) Current Visit: Yes Status: Acute Base Code: K56.609 - UNSP INTESTNL OBST, UNSP TO PARTIAL VERSUS COMPLETE OBST Priority: High Comment: - Will progress diet to full liquid diet. - Rpt Abd XR pending. - Morphine, toradol, tylenol for pain. - Explained to pt to try not to use morphine as it will cause constipation and worsen symptoms/ obstruction. - maintenance fluid 150/hr NS with KCL given hypokalemia - Protonix for burning pain 40mg daily. - will monitor closely. (2) Migraine Current Visit: Yes Status: Acute Qualifiers: Migraine type: without aura Intractability: not intractable Base Code: G43.909 - MIGRAINE, UNSP, NOT INTRACTABLE, WITHOUT STATUS MIGRAINOSUS Priority: Medium Comment: - not resolved with ofiramev and toradol this AM - Sumatriptan given, will monitor. - Progress to full liquid diet. (3) Full code status Current Visit: Yes Status: Acute Base Code: Z78.9 - OTHER SPECIFIED HEALTH STATUS Priority: High - Disposition Disposition: Pending able to tolerate soft diet. Results - Labs Result Diagrams: 07/26/18 06:47 07/26/18 06:47 Labs Last 24 Hours: Laboratory Results - last 24 hr 07/26/18 07/26/18 06:47 06:47 WBC 6.1 RBC 4.23 Hgb 13.4 Hct 39.3 MCV 92.9 MCH 31.7 MCHC 34.1 RDW 12.8 Plt Count 234 MPV 9.8 Gran % 60.2 Lymphocytes % 29.0 Monocytes % 7.9 Eosinophils % 2.6 Basophils % 0.3 Sodium 139 Potassium 3.2 L Chloride 103 Carbon Dioxide 26.0 Anion Gap 10.0 BUN 6 Creatinine 0.5 Estimated GFR > 60 Random Glucose 85 Calcium 9.0 Total Bilirubin 0.30 AST 13 ALT 12 Alkaline Phosphatase 56 Total Protein 6.2 L Albumin 4.0 Globulin 2.2 Albumin/Globulin Ratio 1.8 DVT/PE Assessment - Risk for VTE Risk for VTE: Yes Risk Level: High (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) Risk Assessment Date: 07/24/18 Risk Assessment Time: 21:24 VTE Orders Placed or Will Be Placed: Yes - Active Medicaitons Current Medications: Current Medications Alprazolam (Xanax) 0.5 mg PO DAILY PRN PRN Reason: ANXIETY Last Admin: 07/25/18 14:21 Dose: 0.5 mg Carvedilol (Coreg) 25 mg PO BID [facility] Last Admin: 07/26/18 10:30 Dose: 25 mg Enoxaparin Sodium (Lovenox) 40 mg SQ DAILY [facility] Last Admin: 07/26/18 10:24 Dose: 40 mg Potassium Chloride/Sodium Chloride ( Potassium Chl 20meq/) 20 meq in 1,000 mls @ 150 mls/hr IV Q6H [facility] Ketorolac Tromethamine (Toradol) 15 mg IVP Q8H PRN PRN Reason: ABDOMINAL PAIN Last Admin: 07/26/18 07:56 Dose: 15 mg Levothyroxine Sodium (Synthroid) 50 mcg PO DAILYTHY [facility] Last Admin: 07/26/18 06:09 Dose: 50 mcg Magnesium Hydroxide (Milk Of Magnesium) 30 ml PO Q12H [facility] Last Admin: 07/26/18 10:27 Dose: 30 ml Montelukast Sodium (Singulair) 10 mg PO DAILY [facility] Last Admin: 07/26/18 10:27 Dose: 10 mg Morphine Sulfate (Morphine Sulfate) 2 mg IVP Q4H PRN PRN Reason: PAIN - MOD TO SEVERE (5-10) Ondansetron HCl (Zofran) 4 mg IVP Q4H PRN PRN Reason: NAUSEA Last Admin: 07/25/18 22:54 Dose: 4 mg Pantoprazole Sodium (Protonix Iv) 40 mg IVP Q24H [facility] Last Admin: 07/25/18 17:21 Dose: 40 mg Venlafaxine HCl (Effexor Xr) 150 mg PO DAILY [facility] Last Admin: 07/26/18 10:30 Dose: 150 mg AMI Plan - Labs Result Diagrams: 07/26/18 06:47 07/26/18 06:47
--- NOTE | 2018-07-26 14:40 | RADIOLOGY REPORT ---
EXAM: ABDOMEN, TWO VIEWS HISTORY: SMALL BOWEL OBSTRUCTION FOLLOW-UP. TECHNIQUE: Frontal upright and supine AP views of the abdomen were obtained. Comparison: CT abdomen and pelvis 07/24/18. FINDINGS: No abnormally dilated small bowel loops on today's study, decreased when compared to CT pipe fitter helper radiograph from 07/24/18. Small to moderate volume of stool seen along the course of the colon. No visible pneumoperitoneum. IMPRESSION: NO ABNORMALLY DILATED SMALL BOWEL LOOPS ARE VISIBLE BY RADIOGRAPH. THE APPEARANCE IS IMPROVED FROM CT TELEPHONE ORDER CLERK ROOM SERVICE RADIOGRAPH ON 07/24/18. JOB NUMBER: [id number] [facility]
[2018-07-26] MEDS: PANTOPRAZOLE SODIUM IV 40 MG VIAL IVP SCH (17:26)
[2018-07-26] MEDS ORDERED: BUTALB/ACETAMINOPHEN/CAFFEINE TABLET PO ONE (18:31)
--- NOTE | 2018-07-26 20:01 | Discharge Summary ---
Providers Discharge Summary Date: 07/26/18 Date of admission: 07/24/18 14:07 Expected Date of Discharge: 07/26/18 Attending physician: LEBRON MCCLAIN Primary care physician: JAMAAL ZAMBRANO M.D. Physical Exam - Vital Signs Vital Signs: Vital Signs - Last 24 Hrs Temp Pulse Resp BP Pulse Ox 07/26/18 18:00 97.5 F L 77 18 108/77 100 07/26/18 11:27 97.8 F 76 16 169/91 100 07/26/18 10:33 98.1 F 73 17 156/99 98 07/26/18 09:00 76 16 07/26/18 07:51 97.5 F L 81 16 139/90 98 07/26/18 06:00 97.1 F L 79 16 150/77 97 07/26/18 02:00 97.9 F 77 16 148/84 97 07/25/18 22:00 98.4 F 81 17 141/78 99 07/25/18 21:00 16 - General General Appearance: Alert, Oriented x3, Cooperative, No acute distress - Head Head exam: Normal inspection - Eye Eye exam: Normal appearance Pupils: Normal accommodation - ENT ENT exam: Normal exam, Mucous membranes moist, Normal external ear exam, Normal orophraynx Ear exam: Normal external inspection Nasal Exam: Normal inspection. negative: Discharge Mouth exam: Normal external inspection Teeth exam: Normal inspection. negative: Dental caries Throat exam: Normal inspection. negative: Tonsillar erythema, Tonsillar exudate - Neck Neck exam: Normal inspection, Full ROM - Respiratory Respiratory exam: Normal lung sounds bilaterally. negative: Respiratory distress - Cardiovascular Cardiovascular Exam: Regular rate, Normal rhythm, Normal heart sounds - GI/Abdominal GI/Abdominal exam: Soft, Normal bowel sounds. negative: Distended, Guarding, Mass, Rebound, Rigid, Tenderness - Rectal Rectal exam: Deferred - exam: Deferred - Extremities Extremities exam: Normal inspection, Full ROM. negative: Pedal edema, Tenderness - Back Back exam: Reports: Normal inspection, Full ROM. Denies: Muscle spasm, Rash noted, Tenderness - Neurological Neurological exam: Alert, Oriented X3 - Psychiatric Psychiatric exam: Normal affect, Normal mood - Skin Skin exam: Dry, Intact, Normal color, Warm Hospitalization - Hospitalization Admission Diagnosis: SBO possible illeus. abdominal pain - Problem List/Discharge Diagnosis (1) SBO (small bowel obstruction) Status: Acute Base Code: K56.609 - UNSP INTESTNL OBST, UNSP TO PARTIAL VERSUS COMPLETE OBST Comment: - pt tolerated full liquid diet in AM well as well as soft diet in PM. - No ocmplaints of abd pain. - 2 BM's today. - No n/v - Abd XR normal. - Luis agrees to discharge. (2) Migraine Status: Acute Discharge Diagnosis: Migraine type: without aura Intractability: not intractable Base Code: G43.909 - MIGRAINE, UNSP, NOT INTRACTABLE, WITHOUT STATUS MIGRAINOSUS Comment: - not resolved with ofiramev and toradol this AM - fioricet given and provided relief. (3) Full code status Status: Acute Base Code: Z78.9 - OTHER SPECIFIED HEALTH STATUS - Disposition Home. - Hospitalization Course Disposition: Home, Self-Care Hospital Course: ED course: 07/24/18: Pt presented to the ED with abdominal pain. Pt states that the abdominal pain started at 5 PM the night before. She initially thought it was pain 2/2 to her endometriosis but the pain progressively got worse and she started to vomit and have diarrhea overnight. She states that she was able to get a couple hours of rest but then started vomiting again this morning and came to the ED. She states that the pain feels like burning and sharp stabbing in the mid abdomen. She states that she didn't eat anything unusual and didn't consume any amrita lettuce. 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 She denies thinking she has an STD. She has been monogamous with the same partner for roughly 12 years and she believes he is monogamous as well. She uses depo for and is amenorrheic. She denies . Vitals:T 98.3, P 107, RR 20, BP 142/104, 99% on RA Labs: AG increase mildly at 17, Low K+ otherwise nml Imaging: CT abd/pelvis: Suspicious for SBO. Hospital course: 07/24/18 - 07/26/18: After treatment in the ED, her n/v resolved. The next day, Dr. Smith (surgery) evaluated the pt and stated that he thought she had ileus rather than true obstruction, he recommended conservative treatment. Her abdominal pain continued to decrease and over 2 days with pain medication, protonix, and fluids. She was transitioned to CLD -> full liquid diet -> soft diet and did not have any issues. She proceeded to have BM's on the day of discharge. During her stay, she did however complain of migraines 2/2 to not eating like usual, fioricet was given and worked well for her. Procedures: Imaging and X-Rays 07/24/18 12:06 ABDOMEN/PELVIS WO CONTRAST [CT] Stat 07/26/18 06:00 ABDOMEN 2 VIEW [RAD] Routine Abnormal Labs: Abnormal Lab Results 07/24/18 07/24/18 07/24/18 Range/Units 11:28 11:28 11:28 MPV 10.8 H (7.4-10.4) fl Neutrophils % 85.0 H (47-80) % Monocytes % (0-9) % Lymphocytes 11.0 L (16-45) % Potassium 3.1 L (3.4-4.5) mmol/L Chloride (98-107) mmol/L Carbon Dioxide (22-29) mmol/L Anion Gap 17.0 H (7-16) Random Glucose 110 H (74-109) mg/dL Calcium (8.6-10.0) mg/dL Total Protein (6.6-8.7) g/dL Urine Protein Trace H (NEGATIVE) 07/25/18 07/25/18 07/26/18 Range/Units 06:36 06:36 06:47 MPV (7.4-10.4) fl Neutrophils % (47-80) % Monocytes % 9.5 H (0-9) % Lymphocytes (16-45) % Potassium 3.2 L (3.4-4.5) mmol/L Chloride 108 H (98-107) mmol/L Carbon Dioxide 19.0 L (22-29) mmol/L Anion Gap (7-16) Random Glucose (74-109) mg/dL Calcium 8.1 L (8.6-10.0) mg/dL Total Protein 6.2 L (6.6-8.7) g/dL Urine Protein (NEGATIVE) Condition at Discharge: (1) Good VTE Discharge VTE Reason For No Overlap Therapy: Not Indicated Discharge Medications - Discharge Medications Prescriptions: Butalb/Acetaminophen/Caffeine [Fioricet] 2 tab PO Q4H PRN #30 tablet PRN Reason: headache Pantoprazole Sodium [Protonix] 20 mg PO DAILY #30 tablet. Home Medications: Ambulatory Orders Alprazolam 0.5 mg PO DAILY 07/24/18 [Last Taken Unknown] Ascorbic Acid [Vitamin C] 1,000 mg PO DAILY 07/24/18 [Last Taken 07/24/18] Aspirin [Aspirin EC] 325 mg PO DAILY 07/24/18 [Last Taken 07/24/18] Atorvastatin Calcium [Lipitor] 10 mg PO DAILY 07/24/18 [Last Taken 07/24/18] Carvedilol 25 mg PO BID 07/24/18 [Last Taken 07/24/18] Cholecalciferol (Vitamin D3) [Vitamin D3] 5,000 unit PO DAILY 07/24/18 [Last Taken 07/24/18] Folic Acid 0.4 mg PO DAILY 07/24/18 [Last Taken 07/24/18] Hydrochlorothiazide [Hctz] 25 mg PO DAILY 07/24/18 [Last Taken 07/24/18] Levothyroxine Sodium 50 mcg PO DAILY 07/24/18 [Last Taken 07/24/18] Montelukast Sodium 10 mg PO DAILY 07/24/18 [Last Taken 07/24/18] Multivitamin [Daily Multiple Vitamin] 1 each PO DAILY 07/24/18 [Last Taken 07/24] Venlafaxine HCl [Effexor Xr] 150 mg PO DAILY 07/24/18 [Last Taken 07/24/18] Butalb/Acetaminophen/Caffeine [Fioricet] 2 tab PO Q4H PRN #30 tablet 07/26/18 [ Last Taken Unknown] Pantoprazole Sodium [Protonix] 20 mg PO DAILY #30 tablet. 07/26/18 [Last Taken Unknown] Discharge Plan - Discharge Instructions Activity at Discharge: Increase Activity as Tolerated Diet at Discharge: Advance to Usual Diet Instructions: Butalbital/Acetaminophen/Caffeine (By mouth), Pantoprazole (By mouth), Migraine Headache (GEN), Bowel Obstruction (DC) Additional Instructions: milk pickup driver fioricet and protonix as prescribed. continue soft diet for 2 days and then progress slowly. if abd pain returns and is significant go back to the ER. Quality Measures - Quality Measures Quality Measures: Documentation of Current Medications in Medical Record, Screening for High Blood Pressure and F/U Documented - Current Medications Quality Measure: Measure #130: Documentation of Current Medications Documentation of Current Medications: <Current Medications Documented/Reviewed> [G8427] - Blood Pressure Screening Quality Measure: Screening for High Blood Pressure and Follow-Up Documented Does Patient Have Any of the Following: Active Dx of HTN Blood Pressure Classification: Hypertensive Reading Systolic Measurement: 141 Diastolic Measurement: 95 Screening for High Blood Pressure: Patient Exclusion, Hx of HTN [G9744] - Elder Abuse Suspicion Index EASI Reference Information: Melita LUIS, Yovani C, Sumit D, Marilu Sarabia.Development and validation of a tool to assist physicians identification of elder abuse: The Elder Abuse Suspicion Index (EASI ). Journal of Elder Abuse and Neglect, 2008; 20 (3): 276-300.
== END 2018-07-26 20:30 | disposition home or self-care (01) ==
LOC: ER 10:57 → MEDSURG 14:07 → INTOOBSV 14:07 → OBSVTOIN 14:07
PROVIDERS: ADMIT Internal Medicine; ATTEND Internal Medicine
DX: K56.609 Unspecified intestinal obstruction, unspecified as to partial versus complete obstruction (principal); G43.909 Migraine, unspecified, not intractable, without status migrainosus; I10 Essential (primary) hypertension; E03.9 Hypothyroidism, unspecified; Z86.73 Personal history of transient ischemic attack (TIA), and cerebral infarction without residual deficits; N80.9 Endometriosis, unspecified
CPT/HCPCS: 74019; 74176; 80048; 80053; 80076; 81003; 81025; 83690; 85025; 85027; 96361; 96374; 96375; 99217; 99220; 99223; 99225; 99233; 99238; 99285; C9113; J1650; J1885; J2405; J3030; J7030